=== PATIENT | male | born 1975 | race Asian ===

== ENCOUNTER 2022-09-08 22:07 | Emergency (ER) | payer MEDICAID ==
[~2022-09-08] VITALS: Ht 167.6 cm; Wt 145.0 kg
[2022-09-08 23:14] VITALS: BP 142/104
[2022-09-09] MEDS ORDERED: IBUP-1492 PO (01:13)
[2022-09-09] MEDS ORDERED: PERCT PO (01:14)
[2022-09-09] MEDS: OxyCODONE HCL/ACETAMINOPHEN 5-325 MG TABLET PO ONE (01:26)
== END 2022-09-09 01:32 | disposition home or self-care (01) ==
LOC: EMS 22:11
DX: M25.532 Pain in left wrist (principal); S63.602A Unspecified sprain of left thumb, initial encounter; X58.XXXA Exposure to other specified factors, initial encounter; Y93.89 Activity, other specified; Y92.89 Other specified places as the place of occurrence of the external cause; Y99.8 Other external cause status
CPT/HCPCS: 99283